=== PATIENT | female | born 1970 | race Caucasian/White ===

== ENCOUNTER 2017-03-29 15:57 | Observation (INO) | payer MEDICAID, OTHER ==
[2017-03-29] MEDS ORDERED: Sodium Chloride 0.9% 1,000 ML IV STA (16:44)
[2017-03-29] MEDS ORDERED: Insulin Regular 100 units/ml IVP STA (16:44)
[2017-03-29] MEDS ORDERED: Insulin Regular 100 units/ml ONE (16:52)
[2017-03-29 17:10] LABS: BASO % 0.3 % (0.0-2.0); EOS % 0.4 % (0.0-4.0); HEMATOCRIT 42.3 % (34.0-47.0); LYMPH % 13.3 % (20.0-40.0); MEAN CELL VOLUME 91.8 fl (81.0-99.0); MEAN CORPUSCULAR HEMOGLOBIN 31.9 pg (27.0-31.0); MEAN CORPUSCULAR HGB CONC 34.8 g/dL (33.0-37.0); MEAN PLATELET VOLUME 9.4 fl (7.2-11.7); MONO # 0.4 K/uL (0.0-0.8); MONO % 5.6 % (0.0-10.0); NEUT # 6.3 K/uL (1.8-7.0); NEUT % 80.4 % (50.0-75.0); WHITE BLOOD COUNT 7.9 K/uL (4.8-10.8)
--- NOTE | 2017-03-29 17:19 | ED PDOC ---
HPI: General Adult Time Seen by Provider: 03/29/17 16:10 Chief Complaint (Nursing): Abdominal Pain History Per: Patient Additional Complaint(s): Pt. states since 1700 yesterday she's had epigastric pain associated with back pain and nausea but no vomiting. Further states that she is DM and used to take insulin but has not taken her insulin > 1 year. States that this is because she changed her insurance but therefore she has not f/u with her product picker, Dr. Tinajero or her PMD. Denies vomiting, diarrhea, chest pain, SOB, palpitations, dysuria, hematuria, incontinence trauma. Past Medical History Reviewed: Historical Data, Nursing Documentation, Vital Signs Vital Signs: Last Vital Signs Temp 99.3 F 03/29/17 16:02 Pulse 92 H 03/29/17 20:14 Resp 20 03/29/17 16:02 BP 155/91 H 03/29/17 16:02 Pulse Ox 99 03/29/17 20:14 - Medical History PMH: Diabetes, HTN, Pancreatitis - Surgical History Surgical History: Cholecystectomy, Tonsillectomy - Family History Family History: States: No Known Family Hx - Home Medications Home Medications: Ambulatory Orders Medication Instructions Recorded Biotin [Biotin] 1 cap PO DAILY 03/29/17 Lactobacillus Combination No.8 1 cap PO DAILY 03/29/17 [Adult Probiotic] Multivitamin [Multi-Vitamin Daily] 1 tab PO DAILY 03/29/17 - Allergies Allergies/Adverse Reactions: Allergies Allergy/AdvReac Type Severity Reaction Status Date / Time No Known Allergies Allergy Verified 03/29/17 16:13 Review of Systems ROS Statement: Except As Marked, All Systems Reviewed And Found Negative Gastrointestinal: Positive for: Nausea, Abdominal Pain Physical Exam - Reviewed Nursing Documentation Reviewed: Yes Vital Signs Reviewed: Yes - Physical Exam Appears: Positive for: Well, Non-toxic, No Acute Distress Head Exam: Positive for: ATRAUMATIC, NORMAL INSPECTION, NORMOCEPHALIC Skin: Positive for: Normal Color, Warm, DRY Eye Exam: Positive for: EOMI, Normal appearance, PERRL ENT: Positive for: Normal ENT Inspection Neck: Positive for: Normal, Painless ROM Cardiovascular/Chest: Positive for: Regular Rate, Rhythm Respiratory: Positive for: CNT, Normal Breath Sounds Gastrointestinal/Abdominal: Positive for: Normal Exam, Bowel Sounds, Soft, Tenderness (minimal epigastric tenderness) Back: Positive for: Normal Inspection. Negative for: L CVA Tenderness, R CVA Tenderness Extremity: Positive for: Normal ROM Neurologic/Psych: Positive for: Alert, Oriented - Laboratory Results Result Diagrams: 03/29/17 16:30 03/29/17 16:30 - ECG ECG: Positive for: Interpreted By Me ECG Rhythm: Positive for: Sinus Rhythm. Negative for: ST/T Changes Rate: 92 O2 Sat by Pulse Oximetry: 99 ED OBSERVATION Date of observation admission: 03/29/17 Time of observation admission: 17:20 - Observation admission statement Patient is being placed in observation because:: abdominal pain, hyperglycemia - Progress Note Progress Note: 03/29/17 17:20 Labs ordered. FSBS: 343 Insulin 6mg IVP, IV NS bolus x 2 ordered. 03/29/17 18:12 Pt. still with abdominal pain. Reports pain is epigastric and b/l lower abdominal area now. Further reports she had a cholecystectomy [address] abd/pelvis w/ PO and IV contrast ordered. Disposition - Clinical Impression Clinical Impression: Abdominal pain, Hyperglycemia - Patient ED Disposition Is Patient to be Admitted: Transfer of Care (Signed out [facility] pending disposition.) - Disposition Disposition Time: 20:00 Condition: STABLE
[2017-03-29 17:32] LABS: ALB/GLOB RATIO 1.1 (1.0-2.1); ALKALINE PHOSPHATASE 86 U/L (38-126); ALT/SGPT 30 U/L (9-52); AST/SGOT 45 U/L (14-36); BILIRUBIN,TOTAL 1.8 mg/dl (0.2-1.3); BLOOD UREA NITROGEN 8 mg/dl (7-17); CALCIUM 8.4 mg/dL (8.4-10.2); CARBON DIOXIDE 20 mmol/L (22-30); CHLORIDE 102 mmol/L (98-107); GFR AFRICAN-AMERICAN > 60; GLUCOSE,RANDOM 310 mg/dL (65-105); LIPASE 67 U/L (23-300); SODIUM 135 mmol/l (132-148); TOTAL PROTEIN 7.3 G/DL (6.3-8.2)
[2017-03-29 18:29] LABS: RBC URINE 3 /hpf (0-3); URINE BACTERIA RARE (<OCC); URINE BILIRUBIN NEGATIVE (NEGATIVE); URINE BLOOD NEGATIVE (NEGATIVE); URINE COLOR YELLOW (YELLOW); URINE GLUCOSE (UA) >=500 mg/dL (Normal); URINE KETONE 80 mg/dL (NEGATIVE); URINE LEUKOCYTE ESTERASE MOD Leu/uL (Negative); URINE PROTEIN 30 mg/dL (NEGATIVE); URINE UROBILINOGEN 0.2-1.0 mg/dL (0.2-1.0); WBC URINE 139 /hpf (0-5)
[2017-03-29 18:34] LABS: ABG ALLEN TEST YES; ARTERIAL BLOOD GAS HCO3 24.3 mmol/L (21-28); ARTERIAL BLOOD GAS PH 7.42 (7.35-7.45); ARTERIAL BLOOD GAS PO2 78 mm/Hg (80-100)
[2017-03-29] MEDS ORDERED: Iohexol 240 (50 ml) PO ONE (18:51)
[2017-03-29] MEDS ORDERED: Iohexol 240 (50 ml) ONE (19:17)
[2017-03-29] MEDS ORDERED: Iohexol 300 100 ML IJ ONE (21:31)
[2017-03-29] MEDS ORDERED: Sodium Chloride 0.9% 50 ML IV ONE (21:31)
--- NOTE | 2017-03-29 22:23 | CT ---
EXAM: CT Abdomen and Pelvis With Intravenous Contrast CLINICAL HISTORY: 46 years old, female; Pain; Abdominal pain; Epigastric; Prior surgery; Surgery date: 6+ months; Surgery type: x3. Gall bladder removed; Additional info: Epigastric, b/l lower abdominal pain TECHNIQUE: Axial computed tomography images of the abdomen and pelvis with intravenous contrast. All CT scans at this facility use one or more dose reduction techniques, viz.: automated exposure control; ma/kV adjustment per patient size (including targeted exams where dose is matched to indication; i.e. head); or iterative reconstruction technique. Coronal and sagittal reformatted images were created and reviewed. CONTRAST: 95 mL of [id number] administered intravenously. COMPARISON: CT - ABD PELVIS IV CONTRAST ONLY 08/18/2014 2:02:31 AM FINDINGS: Lower thorax: Borderline cardiomegaly. Minimal atelectasis/scarring. ABDOMEN: Liver: Fatty infiltration. Gallbladder and bile ducts: Cholecystectomy. No ductal dilation. Pancreas: No ductal dilation. No mass. Spleen: No splenomegaly. Adrenals: No mass. Kidneys and ureters: No mass. No hydronephrosis. Stomach and bowel: No definite mural thickening. No obstruction. Appendix: Normal caliber. No definite inflammation. PELVIS: Bladder: Unremarkable. Reproductive: Apparent mildly dilated tubular structure within RIGHT adnexal region. No surrounding inflammation. ABDOMEN and PELVIS: Intraperitoneal space: No significant fluid collection. No free air. Bones/joints: No acute fracture. Soft tissues: Tiny umbilical hernia containing fat. Tiny ventral hernia containing fat. Vasculature: Unremarkable. No aneurysm. Lymph nodes: No pathologically enlarged lymph nodes. IMPRESSION: 1. Probable mild RIGHT hydrosalpinx. Consider ultrasound. 2. Incidental/non-acute findings are described above.
--- NOTE | 2017-03-29 22:32 | ED PDOC ---
- Laboratory Results Result Diagrams: 03/29/17 16:30 03/29/17 16:30 - ECG O2 Sat by Pulse Oximetry: 99 - Progress ED Course And Treament: Case endorsed to blog writer from [facility] pending CT EXAM: CT Abdomen and Pelvis With Intravenous Contrast CLINICAL HISTORY: 46 years old, female; Pain; Abdominal pain; Epigastric; Prior surgery; Surgery date: 6+ months; Surgery type: x3. Gall bladder removed; Additional info: Epigastric, b /l lower abdominal pain TECHNIQUE: Axial computed tomography images of the abdomen and pelvis with intravenous contrast. All CT scans at this facility use one or more dose reduction techniques, viz.: automated exposure control; ma/kV adjustment per patient size (including targeted exams where dose is matched to indication; i.e. head); or iterative reconstruction technique. Coronal and sagittal reformatted images were created and reviewed. CONTRAST: 95 mL of [id number] administered intravenously. COMPARISON: CT - ABD PELVIS IV CONTRAST ONLY 08/18/2014 2:02:31 AM FINDINGS: Lower thorax: Borderline cardiomegaly. Minimal atelectasis/scarring. ABDOMEN: Liver: Fatty infiltration. Gallbladder and bile ducts: Cholecystectomy. No ductal dilation. Pancreas: No ductal dilation. No mass. Spleen: No splenomegaly. Adrenals: No mass. Kidneys and ureters: No mass. No hydronephrosis. Stomach and bowel: No definite mural thickening. No obstruction. Appendix: Normal caliber. No definite inflammation. PELVIS: Bladder: Unremarkable. Reproductive: Apparent mildly dilated tubular structure within RIGHT adnexal region. No surrounding inflammation. ABDOMEN and PELVIS: Intraperitoneal space: No significant fluid collection. No free air. Bones/joints: No acute fracture. Soft tissues: Tiny umbilical hernia containing fat. Tiny ventral hernia containing fat. Vasculature: Unremarkable. No aneurysm. Lymph nodes: No pathologically enlarged lymph nodes. IMPRESSION: 1. Probable mild RIGHT hydrosalpinx. Consider ultrasound. 2. Incidental/non-acute findings are described above. EXAM: US Pelvis Complete, Transabdominal CLINICAL HISTORY: 46 years old, female; Pain; Pelvic pain; Additional info: Tubular structure right adnexa seen on CT TECHNIQUE: Real-time transabdominal pelvic ultrasound (complete) with image documentation. COMPARISON: CT - ABD PELVIS PO IV CON 03/29/2017 9:39:43 PM FINDINGS: Uterus/cervix: Uterus measures 12.4 x 6.3 x 7.4 cm in size. No myometrial mass. Endometrium: 0.9 cm in thickness. Nabothian cyst. Right ovary: 2.9 x 1.6 x 2.4 cm in size. 1.7 x 1.4 x 1.5 cm anechoic lesion. Normal flow. Small anechoic tubular structure within RIGHT adnexal region. Left ovary: 2.5 x 1.4 x 2.0 cm in size. No mass. Normal flow. Free fluid: No significant free fluid. Bladder: Unremarkable as visualized. IMPRESSION: 1. RIGHT ovarian cyst. 2. Probable RIGHT hydrosalpinx. EXAM: US Pelvis, Transvaginal CLINICAL HISTORY: 46 years old, female; Pain; Pelvic pain; Additional info: Tubular structure right adnexa seen on CT TECHNIQUE: Real-time transvaginal pelvic ultrasound (complete) with image documentation. Transvaginal imaging was used for better evaluation of the endometrium and adnexa. COMPARISON: CT - ABD PELVIS PO IV CON 03/29/2017 9:39:43 PM FINDINGS: Uterus/cervix: Uterus measures 12.4 x 6.3 x 7.4 cm in size. No myometrial mass. Endometrium: 0.9 cm in thickness. Nabothian cyst. Right ovary: 2.9 x 1.6 x 2.4 cm in size. 1.7 x 1.4 x 1.5 cm anechoic lesion. Normal flow. Small anechoic tubular structure within RIGHT adnexal region. Left ovary: 2.5 x 1.4 x 2.0 cm in size. No mass. Normal flow. Free fluid: No significant free fluid. Bladder: Empty bladder which cannot be evaluated with this probe. IMPRESSION: 1. RIGHT ovarian cyst. 2. Probable RIGHT hydrosalpinx. Pelvic exam performed with [facility] tech as chief wellness officer: external exam normal + right adenexal tenderness. No CMT. No active bleeding. cultures obtained. Rocephin IM, doxycycline PO dose ordered Patietn educated on findings, discharged with rx doxycycline, metformin. 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 REturn to ED for worsening/concerning symptoms. Disposition - Clinical Impression Clinical Impression: Abdominal pain, Hyperglycemia, UTI (urinary tract infection), Ovarian cyst, Hydrosalpinx - POA Present On Arrival: Poor Glycemic Control - Disposition Disposition: Routine/Home Disposition Time: 00:49 Condition: IMPROVED
--- NOTE | 2017-03-30 00:07 | US ---
EXAM: US Pelvis Complete, Transabdominal CLINICAL HISTORY: 46 years old, female; Pain; Pelvic pain; Additional info: Tubular structure right adnexa seen on CT TECHNIQUE: Real-time transabdominal pelvic ultrasound (complete) with image documentation. COMPARISON: CT - ABD PELVIS PO IV CON 03/29/2017 9:39:43 PM FINDINGS: Uterus/cervix: Uterus measures 12.4 x 6.3 x 7.4 cm in size. No myometrial mass. Endometrium: 0.9 cm in thickness. Nabothian cyst. Right ovary: 2.9 x 1.6 x 2.4 cm in size. 1.7 x 1.4 x 1.5 cm anechoic lesion. Normal flow. Small anechoic tubular structure within RIGHT adnexal region. Left ovary: 2.5 x 1.4 x 2.0 cm in size. No mass. Normal flow. Free fluid: No significant free fluid. Bladder: Unremarkable as visualized. IMPRESSION: 1. RIGHT ovarian cyst. 2. Probable RIGHT hydrosalpinx. EXAM: US Pelvis, Transvaginal CLINICAL HISTORY: 46 years old, female; Pain; Pelvic pain; Additional info: Tubular structure right adnexa seen on CT TECHNIQUE: Real-time transvaginal pelvic ultrasound (complete) with image documentation. Transvaginal imaging was used for better evaluation of the endometrium and adnexa. COMPARISON: CT - ABD PELVIS PO IV CON 03/29/2017 9:39:43 PM FINDINGS: Uterus/cervix: Uterus measures 12.4 x 6.3 x 7.4 cm in size. No myometrial mass. Endometrium: 0.9 cm in thickness. Nabothian cyst. Right ovary: 2.9 x 1.6 x 2.4 cm in size. 1.7 x 1.4 x 1.5 cm anechoic lesion. Normal flow. Small anechoic tubular structure within RIGHT adnexal region. Left ovary: 2.5 x 1.4 x 2.0 cm in size. No mass. Normal flow. Free fluid: No significant free fluid. Bladder: Empty bladder which cannot be evaluated with this probe.
[2017-03-30] MEDS ORDERED: cefTRIAXone (Rocephin) 250 mg Inj IM ONE (00:24)
[2017-03-30 01:16] VITALS: BP 135/78; PULSE 80; RESP 16; TEMP 98.8; O2SAT 95
--- NOTE | 2017-03-30 08:38 | CARD ---
APPROVED REPORT EKG Measurement Heart [id number] <Conclusion> Normal sinus rhythm Normal ECG
--- NOTE | 2017-03-30 10:57 | RAD ---
HISTORY: abdominal pain COMPARISON: Chest radiographs 08/18/2014. FINDINGS: LUNGS: No active pulmonary disease. PLEURA: No significant pleural effusion identified, no pneumothorax apparent. CARDIOVASCULAR: Normal. OSSEOUS STRUCTURES: No significant abnormalities. VISUALIZED UPPER ABDOMEN: Normal. OTHER FINDINGS: None. IMPRESSION: No significant interval acute cardiopulmonary disease.
== END 2017-03-30 01:21 | disposition home or self-care (01) ==
LOC: H.ER 15:57 → H.EROBSV 16:44
PROVIDERS: ADMIT Emergency Medicine; ATTEND Emergency Medicine
DX: N70.11 Chronic salpingitis (principal); N39.0 Urinary tract infection, site not specified; B96.89 Other specified bacterial agents as the cause of diseases classified elsewhere; N83.201 Unspecified ovarian cyst, right side; R10.13 Epigastric pain; E11.65 Type 2 diabetes mellitus with hyperglycemia; I10 Essential (primary) hypertension
CPT/HCPCS: 71010; 74177; 76830; 76856; 80053; 81003; 81025; 82803; 82948; 83690; 84484; 85025; 87070; 87086; 87181; 87491; 87591; 93005; 96361; 96372; 96374; 96375; 99284; G0378; J0696; J2270; J7040; Q9966; Q9967